=== PATIENT | male | born 1970 | race Caucasian/White ===

== ENCOUNTER 2020-09-02 14:41 | Outpatient (CLI) | payer OTHER, SELFPAY ==
--- NOTE | ~2020-09-02 | CT_ITS ---
EXAMINATION: CT abdomen pelvis wo con DATE: 09/02/2020 15:06 INDICATION: Unspecified abdominal pain TECHNIQUE: Computed tomography (CT) of the abdomen and pelvis was performed without intravenous contr ast. Automated exposure control and iterative reconstruction technique were employed. Exam dose: 653 .35 mGy-cm total exam DLP. COMPARISON: None. FINDINGS: The lung bases are clear of infiltrate or consolidation. Normal heart size. No pericardial or pleural effusion. Status post cholecystectomy. The liver, spleen, pancreas and bile and pancreatic ducts are unremarkab le. Normal morphology of the adrenal glands. No renal space occupying mass lesion or urinary tract ca lculus or hydroureteronephrosis. The urinary bladder is unremarkable. Prostate enlargement and multip le prostate calcifications. Normal caliber of the abdominal aorta. No intraperitoneal or retroperitoneal or pelvic mass lesion or adenopathy or ascites. Normal appendix. No bowel obstruction, bowel wall thickening, pneumatosis or intraperitoneal free air is detected. Minimal colonic diverticulosis. There is a particularly large diverticulum at the junct ion of the descending and sigmoid colon in the left lower quadrant. Primary lumbar spinal stenosis. Mild degenerative change of lower thoracic spine and lumbar spine. IMPRESSION: Status post cholecystectomy Diverticulosis of the colon Prostate enlargement and calcifications Primary lumbar spinal stenosis Reviewed, dictated and finalized at [facility] Reviewed, dictated and finalized at [facility].
== END 2020-09-02 14:42 | disposition home or self-care (01) ==
PROVIDERS: PCP Internal Medicine; Visit Provider Clinical Nurse Specialist
DX: R10.9 Unspecified abdominal pain (principal); Z90.49 Acquired absence of other specified parts of digestive tract; K57.30 Diverticulosis of large intestine without perforation or abscess without bleeding; N40.0 Benign prostatic hyperplasia without lower urinary tract symptoms
CPT/HCPCS: 74176

== ENCOUNTER 2020-09-06 07:52 | Outpatient (CLI) | payer OTHER, SELFPAY ==
[2020-09-06 08:23] LABS: Basophils Percent Auto 0.5 % (0.2-1.2); Eosinophils Absolute Auto 0.2 K/mm3 (0-0.3); Eosinophils Percent Auto 2.2 % (0-4.4); Hematocrit 47.5 % (42.0-52.0); Hemoglobin 16.3 g/dL (14.0-18.0); Immature Granulocyte Absolute 0.03 K/mm3 (0.00-0.031); Immature Granulocyte Percent A 0.4 % (0-0.5); Lymphocytes Absolute Auto 1.87 K/mm3 (0.9-3.2); Lymphocytes Percent Auto 22.4 % (18.3-44.2); Mean Corpuscular HGB Conc 34.3 g/dl (32-36); Mean Corpuscular Volume 90.5 fl (80-100); Mean Platelet Volume 8.6 fl (7.4-10.4); Monocytes Absolute Auto 0.8 K/mm3 (0.1-0.6); Monocytes Percent Auto 9.4 % (2.6-8.5); Neutrophils Absolute Auto 5.4 K/mm3 (1.3-6.7); Neutrophils Percent Auto 65.1 % (45.5-73.1); Platelet Count Result 211 k/mm3 (150-375); Red Blood Count 5.25 M/mm3 (4.6-6.20); Red Cell Distribution Width 12.2 % (11.5-14.5); White Blood Count 8.3 K/mm3 (4.5-10.0)
[2020-09-06 08:31] LABS: Hemoglobin A1C 4.8 % (<5.7)
[2020-09-06 08:36] LABS: Alanine Aminotransferase 25 U/L (4-50); Albumin Level 4.5 g/dL (3.5-5.1); Alkaline Phosphatase 72 U/L (38-126); Anion Gap 9 mmol/L (8-16); Aspartate Amino Transferase 35 U/L (17-59); Bilirubin,Total 1.1 mg/dL (0.2-1.3); Blood Urea Nitrogen 14 mg/dL (9-20); Calcium 9.3 mg/dL (8.4-10.2); Carbon Dioxide 31 mmol/L (22-30); Chloride 101 mmol/L (98-107); Cholesterol 164 mg/dL (0-200); Estimated Glomerular Filt Rate > 60; Glucose 101 mg/dL (75-110); HDL Direct 47 mg/dL; Sodium 141 mmol/L (137-145); Triglycerides 183 mg/dL (<150)
[2020-09-06 08:47] LABS: LDL Cholesterol Direct 75 mg/dL
[2020-09-06 09:05] LABS: Prostate Specific Antigen 2.2 ng/mL (< OR = 4.0)
== END 2020-09-06 07:53 | disposition home or self-care (01) ==
PROVIDERS: PCP Internal Medicine; Visit Provider Clinical Nurse Specialist
DX: Z12.5 Encounter for screening for malignant neoplasm of prostate (principal); R73.09 Other abnormal glucose; K51.90 Ulcerative colitis, unspecified, without complications; I10 Essential (primary) hypertension
CPT/HCPCS: 36415; 80053; 80061; 83036; 84153; 84443; 85025; G0103

== ENCOUNTER 2021-01-20 09:29 | Outpatient (CLI) | payer OTHER, SELFPAY ==
[2021-01-20 10:28] LABS: Vitamin D 25 Hydroxy 62.9 ng/mL
[2021-01-20 10:36] LABS: Prostate Specific Antigen 1.8 ng/mL (< OR = 4.0)
== END 2021-01-20 09:30 | disposition home or self-care (01) ==
LOC: ANHLAB 09:33
PROVIDERS: PCP Internal Medicine; Visit Provider Clinical Nurse Specialist
DX: Z12.5 Encounter for screening for malignant neoplasm of prostate (principal); E55.9 Vitamin D deficiency, unspecified; N40.1 Benign prostatic hyperplasia with lower urinary tract symptoms; R39.12 Poor urinary stream
CPT/HCPCS: 36415; 82306; 84153

== ENCOUNTER 2021-03-13 11:43 | Outpatient (RCR) | payer OTHER, SELFPAY ==
[2021-03-13] MEDS: diphenhydrAMINE HCl CAP 25 MG CAPSULE PO (14:54)
[2021-03-13] MEDS: FAMOTIDINE 20 MG TABLET PO (14:54)
[2021-03-13] MEDS: ACETAMINOPHEN 325 MG TABLET 650 MG PO (14:54)
[2021-03-13 14:58] VITALS: BP 149/87; PULSE 87; RESP 18; TEMP 36.2; O2SAT 98
[2021-03-13 15:56] VITALS: BP 146/86
--- NOTE | 2021-03-14 08:29 | PC.NURSE ---
Called patient to follow-up regarding antibody infusion yesterday. Patient states they are feeling much better than before treatment and denies any side effects at this time.
== END 2021-03-13 16:00 | disposition home or self-care (01) ==
LOC: AMCINF 11:43
PROVIDERS: PCP Clinical Nurse Specialist; Visit Provider Internal Medicine Hematology & Oncology
DX: Z23 Encounter for immunization (principal); U07.1 COVID-19; I10 Essential (primary) hypertension
CPT/HCPCS: A9270; M0243

== ENCOUNTER 2021-04-20 15:40 | Outpatient (CLI) | payer OTHER, SELFPAY | END 2021-04-20 15:41 | disposition home or self-care (01) | LOC: ANHLAB 15:43 | PROVIDERS: PCP Internal Medicine; Visit Provider Clinical Nurse Specialist | DX: U07.1 COVID-19 (principal) | CPT/HCPCS: 36415; 86769; 92524 ==

== ENCOUNTER 2021-05-19 13:00 | Outpatient (RCR) | payer OTHER, SELFPAY ==
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
== END 2021-05-24 17:06 | disposition home or self-care (01) ==
LOC: ANHST 13:00
PROVIDERS: PCP Internal Medicine; Visit Provider Otolaryngology
DX: R49.0 Dysphonia (principal)
CPT/HCPCS: 92507; 92524

== ENCOUNTER 2021-07-21 13:03 | Outpatient (CLI) | payer OTHER, SELFPAY ==
[2021-07-21 14:03] LABS: Prostate Specific Antigen 3.5 ng/mL (< OR = 4.0)
== END 2021-07-21 13:04 | disposition home or self-care (01) ==
PROVIDERS: PCP Internal Medicine; Visit Provider Clinical Nurse Specialist
DX: N40.1 Benign prostatic hyperplasia with lower urinary tract symptoms (principal); R39.12 Poor urinary stream
CPT/HCPCS: 36415; 84153

== ENCOUNTER 2021-09-15 09:39 | Outpatient (CLI) | payer OTHER, SELFPAY ==
[2021-09-15 10:05] LABS: Alanine Aminotransferase 25 U/L (4-50); Albumin Level 4.6 g/dL (3.5-5.1); Alkaline Phosphatase 60 U/L (38-126); Anion Gap 5 mmol/L (8-16); Aspartate Amino Transferase 52 U/L (17-59); Basophils Absolute Auto 0.1 K/mm3 (0.0-0.1); Basophils Percent Auto 0.9 % (0.2-1.2); Bilirubin,Total 0.9 mg/dL (0.2-1.3); Blood Urea Nitrogen 21 mg/dL (9-20); Calcium 9.1 mg/dL (8.4-10.2); Carbon Dioxide 32 mmol/L (22-30); Chloride 103 mmol/L (98-107); Cholesterol 169 mg/dL (0-200); Eosinophils Absolute Auto 0.2 K/mm3 (0-0.3); Eosinophils Percent Auto 2.9 % (0-4.4); Estimated Glomerular Filt Rate > 60; Glucose 104 mg/dL (65-110); HDL Direct 46 mg/dL; Hematocrit 46.7 % (42.0-52.0); Hemoglobin 16.1 g/dL (14.0-18.0); Immature Granulocyte Absolute 0.06 K/mm3 (0.00-0.031); Immature Granulocyte Percent A 0.9 % (0-0.5); Lymphocytes Absolute Auto 1.84 K/mm3 (0.9-3.2); Lymphocytes Percent Auto 26.9 % (18.3-44.2); Mean Corpuscular HGB Conc 34.5 g/dl (32-36); Mean Corpuscular Hemoglobin 31.3 pg (26-34); Mean Corpuscular Volume 90.9 fl (80-100); Mean Platelet Volume 8.8 fl (7.4-10.4); Monocytes Absolute Auto 0.6 K/mm3 (0.1-0.6); Monocytes Percent Auto 9.4 % (2.6-8.5); Platelet Count Result 234 k/mm3 (150-375); Potassium 4.5 mmol/L (3.4-5.0); Red Blood Count 5.14 M/mm3 (4.6-6.20); Red Cell Distribution Width 12.3 % (11.5-14.5); Sodium 140 mmol/L (137-145); Triglycerides 153 mg/dL (<150); White Blood Count 6.8 K/mm3 (4.5-10.0)
[2021-09-15 10:16] LABS: LDL Cholesterol Direct 74 mg/dL
[2021-09-15 10:39] LABS: Vitamin D 25 Hydroxy 82.4 ng/mL
== END 2021-09-15 09:40 | disposition home or self-care (01) ==
PROVIDERS: PCP Internal Medicine; Visit Provider Clinical Nurse Specialist
DX: I10 Essential (primary) hypertension (principal); E55.9 Vitamin D deficiency, unspecified
CPT/HCPCS: 36415; 80053; 80061; 82306; 84443; 85025

== ENCOUNTER 2021-11-16 17:29 | Outpatient (CLI) | payer OTHER, SELFPAY ==
[2021-11-16 20:38] LABS: Prostate Specific Antigen 2.1 ng/mL (< OR = 4.0)
== END 2021-11-16 17:30 | disposition home or self-care (01) ==
LOC: ANHLAB 17:31
PROVIDERS: PCP Internal Medicine
DX: R97.20 Elevated prostate specific antigen [PSA] (principal)
CPT/HCPCS: 36415; 84153; G0103

== ENCOUNTER 2022-03-21 09:29 | Outpatient (CLI) | payer OTHER, SELFPAY ==
[2022-03-21 09:50] LABS: Basophils Absolute Auto 0.1 K/mm3 (0.0-0.1); Basophils Percent Auto 0.8 % (0.2-1.2); Eosinophils Absolute Auto 0.3 K/mm3 (0-0.3); Eosinophils Percent Auto 5.2 % (0-4.4); Hematocrit 46.7 % (42.0-52.0); Hemoglobin 15.6 g/dL (14.0-18.0); Immature Granulocyte Absolute 0.01 K/mm3 (0.00-0.031); Immature Granulocyte Percent A 0.2 % (0-0.5); Lymphocytes Absolute Auto 1.82 K/mm3 (0.9-3.2); Lymphocytes Percent Auto 29.3 % (18.3-44.2); Mean Corpuscular HGB Conc 33.4 g/dl (32-36); Mean Corpuscular Hemoglobin 31.1 pg (26-34); Mean Corpuscular Volume 93.2 fl (80-100); Mean Platelet Volume 8.8 fl (7.4-10.4); Monocytes Absolute Auto 0.6 K/mm3 (0.1-0.6); Monocytes Percent Auto 9.5 % (2.6-8.5); Neutrophils Absolute Auto 3.4 K/mm3 (1.3-6.7); Platelet Count Result 186 k/mm3 (150-375); Red Blood Count 5.01 M/mm3 (4.6-6.20); Red Cell Distribution Width 12.9 % (11.5-14.5); White Blood Count 6.2 K/mm3 (4.5-10.0)
[2022-03-21 10:06] LABS: Alanine Aminotransferase 24 U/L (6-50); Albumin Level 4.6 g/dL (3.5-5.1); Alkaline Phosphatase 63 U/L (38-126); Anion Gap 8 mmol/L (8-16); Aspartate Amino Transferase 32 U/L (17-59); Bilirubin,Total 0.8 mg/dL (0.2-1.3); Blood Urea Nitrogen 21 mg/dL (9-20); Calcium 8.9 mg/dL (8.4-10.2); Carbon Dioxide 27 mmol/L (22-30); Chloride 104 mmol/L (98-107); Cholesterol 171 mg/dL (0-200); Estimated Glomerular Filt Rate > 60; Glucose 100 mg/dL (65-110); HDL Direct 61 mg/dL; Potassium 3.9 mmol/L (3.4-5.0); Sodium 139 mmol/L (137-145); Triglycerides 122 mg/dL (<150)
[2022-03-21 10:17] LABS: LDL Cholesterol Direct 80 mg/dL
== END 2022-03-21 09:30 | disposition home or self-care (01) ==
PROVIDERS: PCP Internal Medicine; Visit Provider Nurse Practitioner
DX: E55.9 Vitamin D deficiency, unspecified (principal); Z13.220 Encounter for screening for lipoid disorders; Z13.29 Encounter for screening for other suspected endocrine disorder
CPT/HCPCS: 36415; 80053; 80061; 82306; 85025

== ENCOUNTER 2022-09-18 09:49 | Outpatient (CLI) | payer OTHER, SELFPAY ==
[2022-09-18 10:09] LABS: Basophils Absolute Auto 0.1 K/mm3 (0.0-0.1); Basophils Percent Auto 0.8 % (0.2-1.2); Eosinophils Absolute Auto 0.3 K/mm3 (0-0.3); Eosinophils Percent Auto 4.8 % (0-4.4); Hematocrit 45.6 % (42.0-52.0); Hemoglobin 15.4 g/dL (14.0-18.0); Immature Granulocyte Absolute 0.02 K/mm3 (0.00-0.031); Immature Granulocyte Percent A 0.3 % (0-0.5); Lymphocytes Absolute Auto 1.91 K/mm3 (0.9-3.2); Lymphocytes Percent Auto 31.6 % (18.3-44.2); Mean Corpuscular HGB Conc 33.8 g/dl (32-36); Mean Corpuscular Hemoglobin 30.7 pg (26-34); Mean Platelet Volume 8.6 fl (7.4-10.4); Monocytes Absolute Auto 0.5 K/mm3 (0.1-0.6); Monocytes Percent Auto 8.8 % (2.6-8.5); Neutrophils Absolute Auto 3.2 K/mm3 (1.3-6.7); Neutrophils Percent Auto 53.7 % (45.5-73.1); Platelet Count Result 225 k/mm3 (150-375); Red Blood Count 5.01 M/mm3 (4.6-6.20); Red Cell Distribution Width 12.3 % (11.5-14.5)
[2022-09-18 10:54] LABS: Alanine Aminotransferase 26 U/L (6-50); Albumin Level 4.5 g/dL (3.5-5.1); Alkaline Phosphatase 70 U/L (38-126); Anion Gap 6 mmol/L (8-16); Aspartate Amino Transferase 32 U/L (17-59); Blood Urea Nitrogen 23 mg/dL (9-20); Calcium 8.7 mg/dL (8.4-10.2); Carbon Dioxide 29 mmol/L (22-30); Chloride 103 mmol/L (98-107); Cholesterol 174 mg/dL (0-200); Estimated Glomerular Filt Rate > 60; Glucose 97 mg/dL (65-110); HDL Direct 45 mg/dL; Potassium 4.1 mmol/L (3.4-5.0); Sodium 138 mmol/L (137-145); Triglycerides 193 mg/dL (<150)
[2022-09-18 11:05] LABS: LDL Cholesterol Direct 78 mg/dL
[2022-09-18 11:31] LABS: Vitamin D 25 Hydroxy 62.8 ng/mL
== END 2022-09-18 09:50 | disposition home or self-care (01) ==
LOC: ANHLAB 09:51
PROVIDERS: PCP Internal Medicine; Visit Provider Clinical Nurse Specialist
DX: I10 Essential (primary) hypertension (principal); F41.9 Anxiety disorder, unspecified; E55.9 Vitamin D deficiency, unspecified
CPT/HCPCS: 36415; 80053; 80061; 82306; 84443; 85025

== ENCOUNTER 2022-11-22 15:01 | Outpatient (CLI) | payer OTHER, SELFPAY | END 2022-11-22 15:02 | disposition home or self-care (01) | LOC: ANHGOSHLAB 15:02 | PROVIDERS: PCP Internal Medicine; Visit Provider Family Medicine | DX: D64.9 Anemia, unspecified (principal) | CPT/HCPCS: 36415; 82728 ==

== ENCOUNTER 2024-09-28 11:48 | Outpatient (CLI) | payer OTHER, SELFPAY ==
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
--- OUTSIDE RECORDS SUMMARY | 2024-09-28 13:19 | XMS_ITS | Encounter Summary ---
Author Organization [facility] Address [address] [place] [address] Care Team Providers Care Regional Retail Sales Manager Name Role Phone Henry Lara DO Primary Care Provider [phone]- [phone] Encounter Details Date Type Department Care Team (Late st Contact Info) Description 11/10/2021 Telephone [facility] [place], [place] [id number] Mohinder Melvin MD [address] [facility] [address] [place], [place] [id number] Social History Tobacco Use Types Packs/Day Years Used Date Smoking Tobacco: Former Cigarettes 1 20 1 984 - 2003 Smokeless Tobacco: Never Alcohol Use Standard Drinks/Week Comments Yes 0 (1 standard drink = 0.6 oz pur e alcohol) RARE AUDIT-C Answer Date Recorded Q1: How often do you have a drink containing alc ohol? 2-4 times a month 10/02/2021 Q2: How many drinks containi ng alcohol do you have on a typical day when you are drinking? 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
[2024-10-03 12:08] LABS: Testosterone Free 52.6 pg/mL (35.0-155.0); Testosterone Total 278 ng/dL (250-1100)
== END 2024-09-28 11:49 | disposition home or self-care (01) ==
PROVIDERS: PCP Internal Medicine; Visit Provider Clinical Nurse Specialist
DX: R53.83 Other fatigue (principal); Z12.5 Encounter for screening for malignant neoplasm of prostate
CPT/HCPCS: 36415; 84153; 84402; 84403; G0103

== ENCOUNTER 2025-04-16 07:47 | Outpatient (CLI) | payer OTHER, SELFPAY ==
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
--- OUTSIDE RECORDS SUMMARY | 2025-04-16 07:58 | XMS_ITS | Encounter Summary ---
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
== END 2025-04-16 07:48 | disposition home or self-care (01) ==
LOC: ANHAUDASC 07:52
PROVIDERS: PCP Internal Medicine; Visit Provider Otolaryngology
DX: H92.01 Otalgia, right ear (principal); Z87.09 Personal history of other diseases of the respiratory system
CPT/HCPCS: 92557; 92567